=== PATIENT | female | born 1935 | race Caucasian/White ===

== ENCOUNTER 2021-03-26 12:28 | Outpatient (CLI) | payer MEDICARE, SELFPAY ==
--- NOTE | ~2021-03-26 | XR_ITS ---
EXAMINATION: XR abdomen/kub 1V INDICATION: Left flank pain TECHNIQUE: Supine view of the abdomen is obtained. COMPARISON: 10/17/2008 FINDINGS: Stones of the left kidney lower pole measure up to 6 mm. The bowel gas pattern is normal. T here is moderate lumbar spondylosis. 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 IMPRESSION: 1. Left nephrolithiasis. Reviewed, dictated and finalized at location F. OR BIOSTATISTICIAN/GROUP LEADER IMPRESSION: 1. Left nephrolithiasis.
--- NOTE | ~2021-03-26 | CT_ITS ---
EXAMINATION: CT abdomen pelvis wo con DATE: 03/26/2021 13:02 INDICATION: Left flank pain TECHNIQUE: Computed tomography (CT) of the abdomen and pelvis was performed without intravenous contr ast. The dose-length product (DLP) was 888.75 mGy-cm. Automated exposure control and iterative recons truction technique were employed. COMPARISON: None FINDINGS: The visualized lung bases measure up to 2 mm in the right middle lobe. The heart size is no rmal. Skin thickening of the left breast, fluid density adjacent to the left chest wall, and small si ze of the left breast compared to the right are consistent with changes of left breast cancer treatme nt. The liver, spleen, pancreas, gallbladder, and adrenal glands are normal. There are peripelvic cys ts of the kidneys. There is a 2.3 cm exophytic cyst of the left kidney upper pole. There are at least three stones in the left renal pelvis which measure up to 5 mm. There is moderate left hydronephrosi s. There appears to be a stricture at the left ureteropelvic junction. There is mild inflammatory str anding surrounding the left mid ureter. No pathologically enlarged abdominal or pelvic lymph nodes ar e identified. There is no free intraperitoneal gas or evidence of bowel obstruction. Colonic divertic ulosis is present without evidence of diverticulitis. A fat-containing left inguinal hernia is noted. There is coarse trabeculation and cortical thickening of the proximal left femur, likely Paget's dis ease. There is moderate lumbar spondylosis. IMPRESSION: 1. At least three stones in the left renal pelvis with moderate hydronephrosis and possible UPJ stric ture. Reviewed, dictated and finalized at location F. ER MAKER MACHINE IMPRESSION: 1. At least three stones in the left renal pelvis with moderate hydronephrosis and possible UPJ stricture.
== END 2021-03-26 12:29 | disposition home or self-care (01) ==
LOC: ANHIMG 12:36
PROVIDERS: PCP Internal Medicine; Visit Provider Nurse Practitioner Family
DX: R10.9 Unspecified abdominal pain (principal); N20.0 Calculus of kidney
CPT/HCPCS: 74018; 74176

== ENCOUNTER 2021-04-17 08:21 | Outpatient (CLI) | payer MEDICARE, SELFPAY ==
--- NOTE | ~2021-04-17 | CT_ITS ---
EXAMINATION: CT abdomen pelvis wo/w con DATE: 04/17/2021 09:24 INDICATION: Hydronephrosis TECHNIQUE: Computed tomography (CT) of the abdomen and pelvis was performed without and subsequently with 130 cc Omnipaque 350 intravenous contrast. Automated exposure control and iterative reconstructi on technique were employed. Exam dose: 1995.55 mGy-cm total exam DLP. COMPARISON: April 17, 2021 KUB March 26, [address] abdomen pelvis FINDINGS: Limited visualization of the left breast with stable abnormal asymmetric findings; history of left breast cancer and treatment. 3 mm middle lobe nodule (series 4 image 2). Approximately 11.6 x 18.8 mm pleural-based soft tissue density along the lower left lateral chest wal l. 2.5 and 3.7 mm pleural-based nodules at the right lower lobe (series 4 image 2 and image 5). The above findings are stable since 03/26/2021. Left lower lobe calcified pulmonary granulomas. Cardiomegaly. No pericardial or pleural effusion. The liver, gallbladder, bile ducts, pancreas, pancreatic duct, spleen and adrenal glands are unremark able. Multiple right parapelvic renal cysts. There are multiple (4 or more) right renal hypoenhancing lesions, measuring up to 8 and 9 mm, likely cysts. No right urinary tract calculus or hydroureteronephrosis. Occasional left renal cysts, the largest an exophytic cyst at the posterior upper pole of left kidney measuring 2.5 cm. There is a 9.4 x 12.4 left renal ureteropelvic obstructing calculus with attenuation of 350 H.U. There are 2 additional smaller left renal ureteropelvic calculi measuring up to 3 mm. There is prominent left renal pelviectasis and hydronephrosis as a result. There are 3 nonobstructing left renal calculi, measuring 6.5, 5.2 and 5.2 mm. There is atherosclerotic calcification but normal caliber of the abdominal aorta. There is calcificat ion at the origins of the celiac and superior mesenteric and renal arteries. No intraperitoneal or re troperitoneal or pelvic mass lesion or adenopathy or ascites is detected. Small sliding hiatal hernia. No evidence of appendicitis. There are numerous diverticula of the left and right colon; no CT evidence of diverticulitis. No maru l obstruction, bowel wall thickening, pneumatosis or intraperitoneal free air is detected Small fat-containing umbilical hernia. Fat-containing left inguinal hernia.. There is degenerative spurring of the thoracic spine. There is a hemangioma at T8 vertebral body. There is severe degenerative disc disease and mild retrolisthesis at L2-3. There is moderately severe degenerative disc disease at L3-4 and L5-S1 and moderate degenerative disc disease at the remaining lumbar interspaces. Bilateral hip osteoarthritis, more pronounced on the right. 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 IMPRESSION: Prominent left renal pelviectasis and hydronephrosis due to obstructing left ureteropelv ic calculi 3 nonobstructing left renal calculi Bilateral renal probable cysts Diverticulosis of left and right colon; no evidence of diverticulitis Fat-containing left inguinal hernia Reviewed, dictated and finalized at Location A. Reviewed, dictated and finalized at location A. ESALE LOAN PROCESSOR IMPRESSION: Prominent left renal pelviectasis and hydronephrosis due to obstru cting left ureteropelvic calculi 3 nonobstructing left renal calculi Bilateral renal probable cysts Diverticulosis of left and right colon; no evidence of diverticulitis Fat-containing left inguinal hernia
--- NOTE | ~2021-04-17 | XR_ITS ---
EXAMINATION: XR abdomen/kub 1V EXAM DATE: 04/17/2021 08:48 INDICATION: Hydronephrosis. TECHNIQUE: Frontal projection(s) of the abdomen for interpretation. Correlation is made to CT abdomen pelvis same date. FINDINGS: Left calyceal stones are identified, indicated. Expected amount of colonic stool and gas, n o small bowel dilation. There is no organomegaly. There are bony degenerative changes. IMPRESSION: Left nephrolithiasis. Reviewed, dictated and finalized at location B. ECT ECONOMIST IMPRESSION: Left nephrolithiasis.
[2021-04-17 09:01] LABS: Estimated Glomerular Filt Rate 36
== END 2021-04-17 08:22 | disposition home or self-care (01) ==
PROVIDERS: PCP Internal Medicine; Visit Provider Nurse Practitioner Family
DX: N13.30 Unspecified hydronephrosis (principal); N20.0 Calculus of kidney; K40.90 Unilateral inguinal hernia, without obstruction or gangrene, not specified as recurrent; K57.30 Diverticulosis of large intestine without perforation or abscess without bleeding
CPT/HCPCS: 74018; 74178; Q9967

== ENCOUNTER 2021-05-13 13:09 | Outpatient (CLI) | payer MEDICARE, SELFPAY ==
--- NOTE | ~2021-05-13 | NM_ITS ---
EXAMINATION: ANDREINA rob renal scan DATE: 05/13/2021 15:06 INDICATION: Hydronephrosis TECHNIQUE: 7.1 mCi Tc-99m MAG3 was administered IV. 40 mg furosemide was administered IV immediately afterward. The patient was scanned in the supine position. A posterior abdominal radionuclide angiog lizy was obtained. A subsequent time course of static images of the kidneys, ureters, and bladder was obtained. COMPARISON: CT abdomen and pelvis dated 04/26/2021 FINDINGS: The posterior abdominal radionuclide angiogram and sequential static images show normal position and morphology of the right kidney. There is normal position of the left kidney which is enlarged with an initially photopenic hilum consistent with hydronephrosis. Peak renal parenchymal uptake was 8.5 min in left kidney and 8.5 min in right kidney (normal peak 3-5 minutes). The relative early renal upta ke was 54% on the left and 46% on the right (<40% is abnormal). No abnormalities of the ureters or b ladder are seen. T1/2 for clearance of activity from the left kidney and proximal collecting system was 25.9 minutes. T1/2 for clearance of activity from the right kidney and proximal collecting system was 12.0 minutes. Notes on interpretation: T1/2 <10 minutes is normal, 10-15 minutes is low grade obstruction of questi onable clinical significance, 15-20 minutes is partial obstruction that is likely clinically signific ant, >20 minutes is high grade obstruction. Note that false positives may be seen with supine positio keyanna, dehydration, severely dilated nonobstructed kidney, atonic collecting system, poor renal functi on, and chronic furosemide use. IMPRESSION: 1. Symmetric kidney function with symmetric delayed time to peak consistent with nonspecific nephrop athy. 2. Delayed activity excretion, minimal on the right which may be related to the likely nonspecific n ephropathy and more severe on the left. 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 Reviewed, dictated and finalized at location A. GN CHIEF IMPRESSION: 1. Symmetric kidney function with symmetric delayed time to peak consistent wi th nonspecific nephropathy. 2. Delayed activity excretion, minimal on the right which may be related to th e likely nonspecific nephropathy and more severe on the left. 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
== END 2021-05-13 13:10 | disposition home or self-care (01) ==
PROVIDERS: PCP Internal Medicine; Visit Provider Nurse Practitioner Family
DX: N13.30 Unspecified hydronephrosis (principal)
CPT/HCPCS: 78708; A9562; J1940

== ENCOUNTER 2021-08-28 08:55 | Outpatient (CLI) | payer MEDICARE, SELFPAY ==
--- NOTE | ~2021-08-28 | NM_ITS ---
EXAMINATION: ANDREINA rob renal scan DATE: 08/28/2021 10:38 INDICATION: Hydronephrosis TECHNIQUE: 7.5 mCi Tc-99m MAG3 was administered IV. 40 mg furosemide was administered IV immediately afterward. The patient was scanned in the supine position. A posterior abdominal radionuclide angiog lizy was obtained. A subsequent time course of static images of the kidneys, ureters, and bladder was obtained. COMPARISON: 05/13/2021 FINDINGS: The posterior abdominal radionuclide angiogram and sequential static images show normal size, positio n, and morphology of the right kidney. Enhancing is normal position of the left kidney which appears mildly enlarged relative to the right kidney with mildly enlarged central photopenic hilum on the ear ly images and with some hydronephrosis within the prominent right extrarenal pelvis which projects ov er the lower pole as seen on CT dated 04/17/2021. Peak renal parenchymal uptake was 13.5 min in left k idney and 4.5 min in right kidney (normal peak 3-5 minutes). The relative early renal uptake was 53% on the left and 47% on the right (<40% is abnormal). No abnormalities of the ureters or bladder are seen. T1/2 for clearance of activity from the left kidney and proximal collecting system was 22.0 minutes. T1/2 for clearance of activity from the right kidney and proximal collecting system was 11.0 minutes. Notes on interpretation: T1/2 <10 minutes is normal, 10-15 minutes is low grade obstruction of questi onable clinical significance, 15-20 minutes is partial obstruction that is likely clinically signific ant, >20 minutes is high grade obstruction. Note that false positives may be seen with supine positio keyanna, dehydration, severely dilated nonobstructed kidney, atonic collecting system, poor renal functi on, and chronic furosemide use. IMPRESSION: 1. Symmetric kidney function. 2. No significant change in delayed activity excretion, minimal on the right which may be related to nonspecific nephropathy or low-grade obstruction of doubtful clinical significance and more severe o n the left. 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 Reviewed, dictated and finalized at location B. IMPRESSION: 1. Symmetric kidney function. 2. No significant change in delayed activity excretion, minimal on the right w hich may be related to nonspecific nephropathy or low-grade obstruction of doub tful clinical significance and more severe on the left. This could be due to hi gh-grade obstruction however as previously noted, given the chronicity of the d elayed activity clearance at the left kidney with relative preservation of the left renal function this more likely represents a combination of chronic partia l UPJ obstruction and secondary dilated atonic collecting system.
== END 2021-08-28 08:56 | disposition home or self-care (01) ==
PROVIDERS: PCP Internal Medicine; Visit Provider Urology
DX: N13.30 Unspecified hydronephrosis (principal)
CPT/HCPCS: 78708; A9562

== ENCOUNTER 2021-12-08 08:18 | Outpatient (CLI) | payer MEDICARE, SELFPAY ==
--- NOTE | 2021-12-08 11:30 | NEURO_ITS ---
Impression: # Complains of pain in lower extremities. 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 # Needle/EMG revealed scarcity of motor unit potentials but no acute denervation potentials. # Clinical correlation recommended. Nerve Conduction Studies Anti Sensory Summary Table Stim Site NR Peak (ms) P-T Amp (?V) Site1 Site2 Delta-P (ms) Dist (cm) Best (m/s) Left Sup Fibular Anti Sensory (Ant Lat Mall) 14 cm 4.0 3.8 14 cm Ant Lat Mall 4.0 16.0 40 Right Sup Fibular Anti Sensory (Ant Lat Mall) 14 cm 4.0 11.0 14 cm Ant Lat Mall 4.0 16.0 40 Left Sural Anti Sensory (Lat Mall) Calf 4.3 9.1 Calf Lat Mall 4.3 16.0 37 Right Sural Anti Sensory (Lat Mall) Calf 4.4 8.7 Calf Lat Mall 4.4 16.0 36 Motor Summary Table Stim Site NR Onset (ms) O-P Amp (mV) Site1 Site2 Delta-0 (ms) Dist (cm) Best (m/s) Left Peroneal Motor (Vastus Med) Ankle 4.3 0.8 Popit Ankle 8.6 37.0 43 Popit 12.9 0.9 Right Peroneal Motor (Vastus Med) Ankle 4.2 1.8 Popit Ankle 8.6 38.0 44 Popit 12.8 1.1 Left Tibial Motor (Abd Cohen Brev) Ankle 4.4 5.6 Knee Ankle 9.4 38.0 40 Knee 13.8 2.9 Right Tibial Motor (Abd Cohen Brev) Ankle 4.4 1.6 Knee Ankle 9.6 38.0 40 Knee 14.0 2.2 F Wave Studies NR F-Lat (ms) L-R F-Lat (ms) Left Peroneal (Mrkrs) (EDB) 53.75 0.99 Right Peroneal (Mrkrs) (EDB) 54.74 0.99 Left Tibial (Mrkrs) (Abd Hallucis) 55.32 0.12 Right Tibial (Mrkrs) (Abd Hallucis) 55.44 0.12 EMG Side Muscle Nerve Root Ins Act Fibs Amp Dur Recrt Comment Right AntTibialis Dp Br Fibular L4-5 Nml Nml Nml Nml Reduced Right Gastroc Tibial S1-2 Nml Nml Nml Nml Reduced Right Fibularis Long Sup Br Fibular L5-S1 Nml Nml Nml Nml Reduced Right Flex Dig Long Tibial L5-S2 Nml Nml Nml Nml Reduced Right Ext Dig Brev Dp Br Fibular L5, S1 Nml Nml Nml Nml Reduced Left AntTibialis Dp Br Fibular L4-5 Nml Nml Nml Nml Reduced Left Gastroc Tibial S1-2 Nml Nml Nml Nml Reduced Left Fibularis Long Sup Br Fibular L5-S1 Nml Nml Nml Nml Reduced Left Flex Dig Long Tibial L5-S2 Nml Nml Nml Nml Reduced Left Ext Dig Brev Dp Br Fibular L5, S1 Nml Nml Nml Nml Reduced Right ExtHallLong Dp Br Fibular L5, S1 Nml Nml Nml Nml Reduced Right Ext Dig Long Dp Br Fibular L5-S1 Nml Nml Nml Nml Reduced Left ExtHallLong Dp Br Fibular L5, S1 Nml Nml Nml Nml Reduced Left Ext Dig Long Dp Br Fibular L5-S1 Nml Nml Nml Nml Reduced MTDD
== END 2021-12-08 08:19 | disposition home or self-care (01) ==
PROVIDERS: PCP Internal Medicine; Visit Provider Internal Medicine
DX: M79.661 Pain in right lower leg (principal)
CPT/HCPCS: 95886; 95910